=== PATIENT | male | born 1945 | race Caucasian/White ===

== ENCOUNTER 2024-07-19 03:18 | Inpatient (IN) | payer MEDICARE, OTHER ==
[2024-07-19 05:29] VITALS: BMI 22.6
[2024-07-19] MEDS ORDERED: Senokot S 8.6-50 MG TAB PO PRN (05:56)
[2024-07-19] MEDS ORDERED: Acetaminophen 325 MG TAB PO PRN (05:56)
[2024-07-19] MEDS ORDERED: Guaifenesin DM 100-10/5 ML UDCUP PO PRN (05:56)
[2024-07-19] MEDS ORDERED: Calcium Carbonate 500 MG ChewTAB PO PRN (05:56)
[2024-07-19] MEDS ORDERED: Ondansetron PF 4 MG/2 ML Vial IVP PRN (05:56)
[2024-07-19] MEDS ORDERED: Ipratropium/Albuterol 3 ML NEB NEB PRN (05:59)
[2024-07-19] MEDS ORDERED: Mometasone 200 MCG/Formoterol 5 MCG 60 PUFF INHALER INH SCH (06:30)
[2024-07-19] MEDS: methylPREDNISolone Sod Succ/PF 125 MG/2 ML VIAL IVP SCH (06:54)
[2024-07-19] MEDS ORDERED: Ipratropium/Albuterol 3 ML NEB NEB SCH (07:00)
[2024-07-19] MEDS ORDERED: FLU (Fluad Triv) TS24-25 (65UP)/MF59C/PF 45 MCG/0.5 ML Syringe IM ONE (07:15)
[2024-07-19] MEDS: Benzonatate 100 MG CAP PO SCH (08:44)
[2024-07-19] MEDS: Loratadine 10 MG TAB PO SCH (08:44)
[2024-07-19] MEDS: Enoxaparin 40 MG (0.4 mL) SYRINGE SC SCH (08:44)
[2024-07-19] MEDS: Pantoprazole DR 40 MG TAB PO SCH (08:44)
[2024-07-19 09:04] LABS: #Basophils 0.01 10x3/uL (0.0-0.2); #Eosinophils 0.13 10x3/uL (0.0-0.5); #Monocytes 0.04 10x3/uL (0.0-1.1); #Neutrophils 4.85 10x3/uL (1.5-8.4); %Basophils 0.2 % (0.0-2.0); %Eosinophils 2.4 % (0.0-6.0); %Lymphocytes 5.1 % (18.0-47.0); %Monocytes 0.8 % (0.0-10.0); %Neutrophils 91.1 % (40.0-75.0); Hematocrit 41.4 % (38.8-50.0); Hemoglobin 13.9 g/dL (13.5-17.5); Mean Corpuscular HGB CONC 33.6 g/dL (32.0-36.0); Mean Corpuscular Hemoglobin 30.5 pg (27.0-33.0); Mean Platelet Volume 9.3 fL (7.4-10.4); Platelet Count 246 10x3/uL (150-450); RBC Distribution Width 12.7 % (11.5-14.5); Red Blood Cell (RBC) Count 4.55 10x6/uL (4.32-5.72); White Blood Cell (WBC) Count 5.3 10x3/uL (3.5-10.5)
[2024-07-19 09:15] LABS: Anion Gap 14 mmol/L (10-20); BUN (Urea Nitrogen) 15 mg/dL (8.4-25.7); Calc. Creatinine Clearance 64 mL/min (70-130); Calcium 9.2 mg/dL (7.8-10.44); Carbon Dioxide 24 mmol/L (23-31); Chloride 106 mmol/L (98-107); Estimated GFR 80; Glucose 160 mg/dL (83-110); Magnesium 2.5 mg/dL (1.6-2.6); Potassium 4.5 mmol/L (3.5-5.1); Sodium 139 mmol/L (136-145)
[2024-07-19] MEDS: Furosemide 20 MG (2 mL) VIAL SLOW IVP SCH (10:17)
[2024-07-19 11:52] VITALS: BP 135/85; TEMP 98
[2024-07-19] MEDS ORDERED: Iopamidol 370 76% 100 ML VIAL ONE (12:00)
[2024-07-19] MEDS ORDERED: Montelukast Sodium 10 mg Tablet PO SCH (21:00)
== END 2024-07-19 12:58 | disposition home or self-care (01) | DRG 189 ==
LOC: CSHTELE 03:18
PROVIDERS: ADMIT Student in an Organized Health Care Education/Training Program; ATTEND Internal Medicine
DX: J96.01 Acute respiratory failure with hypoxia (principal); J45.41 Moderate persistent asthma with (acute) exacerbation; D72.10 Eosinophilia, unspecified; I48.91 Unspecified atrial fibrillation; Z79.899 Other long term (current) drug therapy; Z90.49 Acquired absence of other specified parts of digestive tract; Z98.890 Other specified postprocedural states
CPT/HCPCS: 36415; 71275; 80048; 83735; 85025; J1650; J1940; J2919; Q9967